=== PATIENT | male | born 1965 | race Caucasian/White ===

== ENCOUNTER 2021-03-07 08:42 | Observation (INO) ==
[2021-03-07] MEDS ORDERED: Doxycycline 100 MG in 0.9 % Sodium Chloride Mini Bag 100 ML IVPB ONE (09:13)
[2021-03-07 09:23] LABS: Bilirubin,Urine Negative (Negative); Blood,Urine Negative (Negative); Clarity,Urine Clear (Clear); Color,Urine Yellow (Yellow); Glucose,Urine (UA) Normal (Normal); Ketones,Urine Negative (Negative); Leukocyte Esterase,Urine Negative (Negative); Nitrite,Urine Negative (Negative); Protein,Urine Trace mg/dL (Neg-Trace); Specific Gravity,Urine 1.021 (1.010-1.025)
[2021-03-07 09:46] LABS: Basophils % 0.2 %; Eosinophils # 0.1 K/mcL (0.0-0.6); Eosinophils % 0.3 %; Hematocrit 38.4 % (37.5-50.1); Immature Granulocytes % 1.7 % (0-4); Lymphocytes % 4.2 %; Mean Corpuscular HGB Conc 32.8 g/dL (31.6-35.5); Mean Corpuscular Hemoglobin 30.4 pg (28.0-33.3); Mean Corpuscular Volume 92.8 fL (83.0-100.0); Mean Platelet Volume 8.4 fL (9.4-12.4); Monocytes # 0.5 K/mcL (0.0-1.3); Monocytes % 2.6 %; Neutrophils # 18.3 K/mcL (1.6-8.9); Platelet Count 465 K/mcL (140-400); Red Blood Count 4.14 M/mcL (4.19-5.50); Red Cell Distribution Width 12.4 % (11.5-14.5)
[2021-03-07 09:48] LABS: Hemoglobin 12.6 g/dL (12.9-16.9); Lymphocytes # 0.8 K/mcL (0.6-4.6); White Blood Count 20.1 K/mcL (4.3-11.1)
[2021-03-07 10:09] LABS: Alanine Aminotransferase 68 Units/L (7-52); Albumin 3.3 g/dL (3.5-5.7); Alkaline Phosphatase 140 Units/L (34-104); Aspartate Amino Transferase 29 Units/L (13-39); BUN/Creatinine Ratio 17 (6-26); Bilirubin,Direct 0.1 mg/dL (0.0-0.2); Bilirubin,Indirect 0.5 mg/dL (0.0-1.0); Bilirubin,Total 0.6 mg/dL (0.3-1.0); Blood Urea Nitrogen 12 mg/dL (6-20); Calcium 8.3 mg/dL (8.6-10.3); Carbon Dioxide 23 mEq/L (23-29); Chloride 102 mEq/L (98-107); Globulin 3.4 g/dL (2.4-3.5); Glucose 141 mg/dL (70-105); Osmolality,Calculated 278 (280-300); Phosphorous 2.6 mg/dL (2.7-4.5); Potassium 3.8 mEq/L (3.5-5.1); Sodium 133 mEq/L (136-145); Total Protein 6.7 g/dL (6.4-8.9); Troponin I < 0.03 ng/mL (< 0.04); eGFR For African Americans > 60 (> 60); eGFR For Non-African Americans > 60 (> 60)
[2021-03-07] MEDS ORDERED: Melatonin 3 MG TABLET PO PRN (11:12)
[2021-03-07] MEDS ORDERED: *HR* OxyCODONE Immed Rel 5 MG TABLET PO PRN (11:12)
[2021-03-07] MEDS ORDERED: Acetaminophen 325 MG TABLET PO PRN (11:12)
[2021-03-07] MEDS ORDERED: Ondansetron 4 MG/2 ML VIAL IVP PRN (11:12)
[2021-03-07] MEDS ORDERED: Naloxone 0.4 MG/ML INJ IVP PRN (11:12)
[2021-03-07 11:43] LABS: Lyme Disease Total Antibody Positive (Negative)
[2021-03-07 12:20] LABS: EBV Virus Capsid Ag IgM Ab Positive (Negative)
[2021-03-07] MEDS: 0.9 % Sodium Chloride 1,000 ML IVC SCH ×2 (14:46→23:24)
[2021-03-07] MEDS ORDERED: Acetaminophen IV 1,000 MG/100 ML BAG IVPB ONE (14:50)
[2021-03-07] MEDS: Nicotine 21 MG PATCH.TD24 TD SCH (15:40)
[2021-03-07 19:17] LABS: HIV-1&2 Antibody & p24 Ag Nonreactive (Nonreactive)
[2021-03-07] MEDS: Doxycycline 100 MG CAPSULE PO SCH (19:36)
[2021-03-07] MEDS ORDERED: Doxycycline 100 MG in 0.9 % Sodium Chloride Mini Bag 100 ML IVPB SCH (21:00)
[2021-03-08 02:00] LABS: Basophils # 0.1 K/mcL (0.0-0.2); Basophils % 0.3 %; Eosinophils # 0.1 K/mcL (0.0-0.6); Eosinophils % 0.3 %; Hematocrit 34.9 % (37.5-50.1); Hemoglobin 11.3 g/dL (12.9-16.9); Immature Granulocytes % 1.5 % (0-4); Lymphocytes # 1.4 K/mcL (0.6-4.6); Lymphocytes % 6.3 %; Mean Corpuscular HGB Conc 32.4 g/dL (31.6-35.5); Mean Corpuscular Hemoglobin 30.1 pg (28.0-33.3); Mean Corpuscular Volume 92.8 fL (83.0-100.0); Mean Platelet Volume 8.5 fL (9.4-12.4); Monocytes # 0.6 K/mcL (0.0-1.3); Monocytes % 2.5 %; Neutrophils # 20.1 K/mcL (1.6-8.9); Platelet Count 404 K/mcL (140-400); Red Blood Count 3.76 M/mcL (4.19-5.50); Red Cell Distribution Width 12.5 % (11.5-14.5); Segmented Neutrophils % 89.1 %; White Blood Count 22.6 K/mcL (4.3-11.1)
[2021-03-08 02:17] LABS: Alanine Aminotransferase 53 Units/L (7-52); Albumin 2.8 g/dL (3.5-5.7); Albumin/Globulin Ratio 0.9 (1.1-2.2); Alkaline Phosphatase 121 Units/L (34-104); Aspartate Amino Transferase 27 Units/L (13-39); BUN/Creatinine Ratio 14 (6-26); Bilirubin,Total 0.8 mg/dL (0.3-1.0); Blood Urea Nitrogen 10 mg/dL (6-20); Calcium 7.9 mg/dL (8.6-10.3); Carbon Dioxide 24 mEq/L (23-29); Chloride 104 mEq/L (98-107); Globulin 3.1 g/dL (2.4-3.5); Glucose 102 mg/dL (70-105); Magnesium 1.7 mg/dL (1.6-2.6); Osmolality,Calculated 279 (280-300); Potassium 3.9 mEq/L (3.5-5.1); Sodium 135 mEq/L (136-145); Total Protein 5.9 g/dL (6.4-8.9); eGFR For African Americans > 60 (> 60); eGFR For Non-African Americans > 60 (> 60)
[2021-03-08] MEDS: Doxycycline 100 MG CAPSULE PO SCH ×2 (08:39→19:36)
[2021-03-08] MEDS: Nicotine 21 MG PATCH.TD24 TD SCH (08:39)
[2021-03-08] MEDS: 0.9 % Sodium Chloride 1,000 ML IVC SCH ×2 (08:41→19:31)
[2021-03-09 03:23] LABS: Basophils # 0.1 K/mcL (0.0-0.2); Basophils % 0.5 %; Eosinophils # 0.3 K/mcL (0.0-0.6); Eosinophils % 2.4 %; Hematocrit 34.1 % (37.5-50.1); Hemoglobin 11.2 g/dL (12.9-16.9); Immature Granulocytes % 2.5 % (0-4); Lymphocytes # 1.9 K/mcL (0.6-4.6); Lymphocytes % 18.2 %; Mean Corpuscular HGB Conc 32.8 g/dL (31.6-35.5); Mean Corpuscular Hemoglobin 30.3 pg (28.0-33.3); Mean Corpuscular Volume 92.2 fL (83.0-100.0); Mean Platelet Volume 8.6 fL (9.4-12.4); Monocytes # 0.7 K/mcL (0.0-1.3); Monocytes % 6.4 %; Platelet Count 405 K/mcL (140-400); Red Cell Distribution Width 12.5 % (11.5-14.5)
[2021-03-09 03:47] LABS: Alanine Aminotransferase 45 Units/L (7-52); Albumin 2.8 g/dL (3.5-5.7); Albumin/Globulin Ratio 0.9 (1.1-2.2); Alkaline Phosphatase 104 Units/L (34-104); Aspartate Amino Transferase 26 Units/L (13-39); BUN/Creatinine Ratio 18 (6-26); Bilirubin,Total 0.3 mg/dL (0.3-1.0); Blood Urea Nitrogen 12 mg/dL (6-20); Carbon Dioxide 25 mEq/L (23-29); Chloride 108 mEq/L (98-107); Globulin 3.2 g/dL (2.4-3.5); Glucose 100 mg/dL (70-105); Osmolality,Calculated 284 (280-300); Potassium 3.9 mEq/L (3.5-5.1); Sodium 137 mEq/L (136-145); eGFR For African Americans > 60 (> 60); eGFR For Non-African Americans > 60 (> 60)
[2021-03-09 03:59] LABS: Neutrophils # 7.4 K/mcL (1.6-8.9); White Blood Count 10.5 K/mcL (4.3-11.1)
[2021-03-09 07:24] VITALS: BP 137/79
[2021-03-09] MEDS: Doxycycline 100 MG CAPSULE PO SCH (08:23)
[2021-03-09] MEDS: Nicotine 21 MG PATCH.TD24 TD SCH (08:24)
[2021-03-11 11:35] LABS: ANA IgG by ELISA DETECTED (None Detected)
[2021-03-11 11:54] LABS: Anaplasma phagocytophilum IgG <1:80 (<1:80); Anaplasma phagocytophilum IgM < 1:16 (< 1:16)
[2021-03-14 07:08] LABS: ANA HEp-2 IgG IFA DETECTED (<1:80); Anti Nuclear Ab Pattern SPECKLED
[2021-03-14 09:50] LABS: Cytoplasmic Pattern SPECKLED
== END 2021-03-09 10:30 | disposition home or self-care (01) ==
LOC: 3ANU 08:42 → EMEROOARM 08:42 → 3ANU 13:52
PROVIDERS: ADMIT Internal Medicine; ATTEND Internal Medicine